=== PATIENT | male | born 1930 | race Two or more races ===

== ENCOUNTER 2017-09-18 07:13 | Outpatient (CLI) | payer OTHER | END 2017-09-18 07:16 | disposition home or self-care (01) | LOC: NUCLEAR 07:13 | DX: I11.9 Hypertensive heart disease without heart failure (principal); E11.9 Type 2 diabetes mellitus without complications; Z95.1 Presence of aortocoronary bypass graft; R94.31 Abnormal electrocardiogram [ECG] [EKG] | CPT/HCPCS: 78452; 93017; A9500; J0153 ==

== ENCOUNTER 2018-06-14 09:56 | Outpatient (CLI) | payer OTHER | END 2018-06-14 17:00 | disposition home or self-care (01) | LOC: SONOGRAMA 09:56 | DX: N28.1 Cyst of kidney, acquired (principal) ==

== ENCOUNTER 2019-08-11 18:07 | Inpatient (IN) | payer OTHER ==
[~2019-08-11] VITALS: Ht 172.7 cm; Wt 76.2 kg
[2019-08-11] MEDS ORDERED: AVALIDE 300-121 EACH (18:18)
[2019-08-11] MEDS ORDERED: JANUVIA25 MG (18:18)
[2019-08-12] MEDS ORDERED: LEVO-T175 MCG PO (08:09)
[2019-08-12] MEDS ORDERED: DOXAZOSIN MESYLA8 MG PO (08:10)
[2019-08-12] MEDS ORDERED: SIMVASTATIN10 MG PO (08:10)
[2019-08-12] MEDS ORDERED: AMLODIPINE BESYL5 MG PO (08:10)
[2019-08-12] MEDS ORDERED: ACTOS15 MG PO (08:11)
[2019-08-12] MEDS ORDERED: JANUVIA50 MG PO (08:12)
== END 2019-08-16 16:50 | disposition home or self-care (01) | DRG 378 ==
LOC: ER 18:07 → ICU 22:55
PROVIDERS: ADMIT Internal Medicine
PROC: 30233N1 Transfusion of Nonautologous Red Blood Cells into Peripheral Vein, Percutaneous Approach (ICD-10-PCS; principal; 2019-08-12)
PROC: BW28ZZZ Computerized Tomography (CT Scan) of Head (ICD-10-PCS; 2019-08-12)
PROC: 0DJ08ZZ Inspection of Upper Intestinal Tract, Via Natural or Artificial Opening Endoscopic (ICD-10-PCS; 2019-08-15)
DX: K25.4 Chronic or unspecified gastric ulcer with hemorrhage (principal); D62 Acute posthemorrhagic anemia; N17.9 Acute kidney failure, unspecified; I25.10 Atherosclerotic heart disease of native coronary artery without angina pectoris; I12.9 Hypertensive chronic kidney disease with stage 1 through stage 4 chronic kidney disease, or unspecified chronic kidney disease; E11.22 Type 2 diabetes mellitus with diabetic chronic kidney disease; D63.1 Anemia in chronic kidney disease; N18.3 Chronic kidney disease, stage 3 (moderate); Z95.1 Presence of aortocoronary bypass graft

== ENCOUNTER 2020-01-31 11:10 | Outpatient (CLI) | payer OTHER ==
[~2020-01-31 11:10] MED LIST: ACTOS15 MG PO; AMLODIPINE BESYL5 MG PO; AVALIDE 300-121 EACH; DOXAZOSIN MESYLA8 MG PO; JANUVIA25 MG; JANUVIA50 MG PO; LEVO-T175 MCG PO; SIMVASTATIN10 MG PO
== END 2020-01-31 11:13 | disposition home or self-care (01) ==
LOC: NUCLEAR 11:10
DX: M81.0 Age-related osteoporosis without current pathological fracture (principal)

== ENCOUNTER 2020-04-24 14:46 | Outpatient (CLI) | payer OTHER | END 2020-04-24 14:47 | disposition home or self-care (01) | LOC: RAD 14:46 | DX: M51.37 Other intervertebral disc degeneration, lumbosacral region (principal); M81.0 Age-related osteoporosis without current pathological fracture ==

== ENCOUNTER 2020-06-14 07:47 | Outpatient (CLI) | payer OTHER | END 2020-06-14 08:12 | disposition home or self-care (01) | LOC: LAB 07:47 | DX: M81.0 Age-related osteoporosis without current pathological fracture (principal); E06.3 Autoimmune thyroiditis ==

== ENCOUNTER 2020-12-18 07:07 | Outpatient (CLI) | payer OTHER | END 2020-12-18 08:00 | disposition home or self-care (01) | LOC: NUCLEAR 07:07 | PROVIDERS: ATTEND Internal Medicine Cardiovascular Disease | DX: R07.89 Other chest pain (principal); Z95.1 Presence of aortocoronary bypass graft | CPT/HCPCS: 78452; 93017; A9500; J0153 ==

== ENCOUNTER 2022-01-07 09:48 | Outpatient (CLI) | payer OTHER | END 2022-01-07 09:52 | disposition home or self-care (01) | LOC: NUCLEAR 09:48 | PROVIDERS: ATTEND Internal Medicine | DX: M81.0 Age-related osteoporosis without current pathological fracture (principal) ==

== ENCOUNTER 2022-01-23 08:42 | Outpatient (CLI) | payer OTHER | END 2022-01-23 08:48 | disposition home or self-care (01) | LOC: RAD 08:42 | PROVIDERS: ATTEND Physical Medicine & Rehabilitation | DX: M25.561 Pain in right knee (principal); M54.50 Low back pain, unspecified ==